=== PATIENT | female | born 1980 | race Caucasian/White ===

== ENCOUNTER 2023-11-25 08:17 | Emergency (ER) | payer BC ==
[2023-11-25] VITALS (7 sets, daily range): BP systolic 104–123; BP diastolic 66–75
[~2023-11-25] VITALS: Ht 161.3 cm; Wt 83.0 kg
[~2023-11-25 08:17] MED LIST: ANTIVERT PO; AUGMENTIN875TAB PO; FLONASE NASAL50 MCG; MUCINEX600 MG PO; PREDNISONE20 MG PO; ZYRTEC10 MG PO
[2023-11-25] MEDS ORDERED: ONDANSETRON HCl 4 MG/2 ML SDV IV ONE (08:30)
[2023-11-25] MEDS ORDERED: KETOROLAC TROMETHAMINE 30 MG/ML SDV IV ONE (08:35)
[2023-11-25 08:39] LABS: BASO% 0.1 % (0-3); EOS% 0.5 % (0-8); HEMATOCRIT 38.8 % (37.0-47.0); HEMOGLOBIN 12.4 g/dl (12.0-16.0); IMMATURE GRANULOCYTES 0.1 % (0.0-5.0); LYMPH% 2.5 % (15-41); MEAN CELL VOLUME 86.6 fL CALC (80.0-100.0); MEAN CORPUSCULAR HGB 27.7 pG CALC (26.0-32.0); MONO% 6.4 % (2-13); NEUT# 6.63 thou/uL (2.00-7.15); NEUT% 90.4 % (42-76); RED BLOOD COUNT 4.48 mill/uL (4.20-5.60); RED CELL DISTRI WIDTH 14.4 % (11.5-15.5)
[2023-11-25 08:53] LABS: ALBUMIN 4.7 g/dL (3.2-5.0); ALKALINE PHOSPHATASE 58 u/l (38-126); ANION GAP 8 (6-22 (CALC)); BILIRUBIN, TOTAL 0.5 mg/dL (0.02-1.3); BUN 8 mg/dL (7-17); BUN/CREATININE RATIO 13 (12-20 (CALC)); CARBON DIOXIDE 24 mmol/l (22-30); CHLORIDE 111 mmol/l (95-108); CREATININE 0.6 mg/dL (0.5-1.0); ESTIMATED GFR 113 ML/MIN (>=90 (CALC)); POTASSIUM 3.9 mmol/l (3.5-5.1); SGOT/AST 30 u/l (14-36); SODIUM 138 mmol/l (137-146); TOTAL PROTEIN 8.2 g/dL (6.3-8.2)
[2023-11-25] MEDS ORDERED: ZOFRAN4 MG/TAB PO ×2 (09:41→09:47)
[2023-11-25] MEDS ORDERED: PAXLOVID PO ×2 (09:41→09:47)
== END 2023-11-25 09:50 | disposition home or self-care (01) | DRG 179 ==
LOC: ED 08:17
PROVIDERS: Family Medicine
DX: U07.1 COVID-19 (principal); R11.2 Nausea with vomiting, unspecified; R10.13 Epigastric pain